=== PATIENT | female | born 1985 | race Two or more races ===

== ENCOUNTER 2020-02-12 07:23 | Emergency (ER) | payer BC ==
[~2020-02-12] VITALS: Ht 165.1 cm; Wt 63.6 kg
[2020-02-12] MEDS ORDERED: IV NORMAL SALINE 1,000ML 1,000 ML IV ONE (08:00)
--- NOTE | 2020-02-12 08:06 | PHYS DOC ---
General Adult EDM: Chief Complaint: VAGINAL BLEEDING HPI: HPI: 34-year-old G3, P2 female who is about 6 weeks presents with vaginal bleeding and cramping. She has also had some tissue. She is concerned for spontaneous miscarriage. Patient's last menstrual period started December 28. She had a positive test at home. She denies any other symptoms. No fever or chills. Review of Systems: Review of Systems: Constitutional: Denies fever or chills Eyes: Denies change in visual acuity HENT: Denies nasal congestion or sore throat Respiratory: Denies cough or shortness of breath Cardiovascular: Denies chest pain or edema GI: Denies abdominal pain, nausea, vomiting, bloody stools or diarrhea : vaginal bleeding Musculoskeletal: Denies back pain or joint pain Integument: Denies rash Neurologic: Denies headache, focal weakness or sensory changes Endocrine: Denies polyuria or polydipsia Lymphatic: Denies swollen glands Psychiatric: Denies depression or anxiety Current Medications: Current Meds: Current Medications Medications (Trade) Dose Ordered Sig/Urvashi Start Time Stop Time Status Last Admin Dose Admin Sodium Chloride 1,000 ml @ 1,000 mls/hr 1X ONCE 02/12/20 08:00 02/12/20 08:59 UNV Allergies: Allergies: Allergies Coded Allergies Type Severity Reaction Last Updated Verified No Known Drug Allergies 02/12/20 No Physical Exam: PE: Constitutional: Well developed, well nourished, no acute distress, non-toxic appearance. [] HENT: Normocephalic, atraumatic, bilateral external ears normal, oropharynx moist, no oral exudates, nose normal. [] Eyes: PERRLA, EOMI, conjunctiva normal, no discharge. [] Neck: Normal range of motion, no tenderness, supple, no stridor. [] Cardiovascular:Heart rate regular rhythm, no murmur [] Lungs & Thorax: Bilateral breath sounds clear to auscultation [] Abdomen: Bowel sounds normal, soft, no tenderness, no masses, no pulsatile masses. [] Skin: Warm, dry, no erythema, no rash. [] Back: No tenderness, no CVA tenderness. [] Extremities: No tenderness, no cyanosis, no clubbing, ROM intact, no edema. [] Neurologic: Alert and oriented X 3, normal motor function, normal sensory function, no focal deficits noted. [] Psychologic: Affect normal, judgement normal, mood normal. [] EKG: EKG: [] Radiology/Procedures: Radiology/Procedures: [] Impressions: EXAMINATION: PREG 1ST TRIMESTER, 02/12/2020 7:47 AM CLINICAL INDICATION: , vaginal bleeding TECHNIQUE: Grayscale, color and spectral Doppler ultrasound images of the pelvis via transvaginal approach. COMPARISON: None. FINDINGS: The uterus measures 12.1 x 6.7 x 4.9 cm. The endometrial stripe measures 5 mm in thickness. There is no gestational sac visible at this time. No myometrial mass. The right ovary measures 2.8 x 1.8 x 1.8 cm. The left ovary measures 3.4 x 2.6 x 1.5 cm. Both ovaries are normal in appearance with normal blood flow. No adnexal mass or free fluid. IMPRESSION: Normal pelvic ultrasound. No visualized at this time. Electronically signed by: Jacqueline Rosas MD (02/12/2020 8:34 AM) [id number] DICTATED AND SIGNED BY: JACQUELINE ROSAS MD DATE: 02/12/2034 CC: DEBRA BALDERAS DO; PCP,NO ~ Heart Score: Risk Factors: Risk Factors: DM, Current or recent (<one month) smoker, HTN, HLP, family history of CAD, obesity. Risk Scores: Score 0 - 3: 2.5% MACE over next 6 weeks - Discharge Home Score 4 - 6: 20.3% MACE over next 6 weeks - Admit for Clinical Observation Score 7 - 10: 72.7% MACE over next 6 weeks - Early Invasive Strategies Course & Med Decision Making: Course & Med Decision Making Pertinent Labs and Imaging studies reviewed. (See chart for details) The patient's ultrasound is normal and does not visualize a . Her hCG is 229. I have told her that she needs to follow-up with [facility] to make sure this goes to 0. The patient is blood type O- so I have ordered RhoGam for her. Her other labs are unremarkable. She is stable for discharge at this time. [] Dragon Disclaimer: Dragon Disclaimer: This electronic medical record was generated, in whole or in part, using a voice recognition dictation system. Departure Departure: Impression: Primary Impression: Miscarriage Disposition: 01 DC HOME SELF CARE/HOMELESS Condition: STABLE Referrals: PCP,NO (PCP) Patient Instructions: Miscarriage, [id number] DEBRA BALDERAS DO Feb 12, 2020 08:06
[2020-02-12 08:18] LABS: BASO # 0.1 x10^3/uL (0.0-0.2); BASO % 1 % (0-3); EOS # 0.3 x10^3/uL (0.0-0.7); EOS % 5 % (0-3); HEMATOCRIT 36.3 % (36.0-47.0); LYMPH # 2.1 x10^3/uL (1.0-4.8); LYMPH % 33 % (24-48); MEAN CORPUSCULAR HEMOGLOBIN 30 pg (25-35); MEAN CORPUSCULAR HGB CONC 33 g/dL (31-37); MEAN CORPUSCULAR VOLUME 91 fL (79-100); MONO # 0.4 x10^3/uL (0.0-1.1); MONO % 6 % (0-9); NEUT # 3.5 x10^3uL (1.8-7.7); NEUT % 55 % (31-73); PLATELET COUNT 249 x10^3/uL (140-400); RED BLOOD COUNT 3.98 x10^6/uL (3.50-5.40); RED CELL DISTRIBUTION WIDTH 15.4 % (11.5-14.5); WHITE BLOOD COUNT 6.3 x10^3/uL (4.0-11.0)
[2020-02-12 08:27] LABS: CALCIUM 9.2 mg/dL (8.5-10.1); CREATININE 0.7 mg/dL (0.6-1.0)
[2020-02-12 08:33] LABS: ALBUMIN 4.1 g/dL (3.4-5.0); ALBUMIN/GLOBULIN RATIO 1.2 (1.0-1.7); TOTAL BILIRUBIN 1.5 mg/dL (0.2-1.0); TOTAL PROTEIN 7.4 g/dL (6.4-8.2)
--- NOTE | 2020-02-12 08:37 | RAD ---
EXAMINATION: PREG 1ST TRIMESTER, 02/12/2020 7:47 AM CLINICAL INDICATION: , vaginal bleeding TECHNIQUE: Grayscale, color and spectral Doppler ultrasound images of the pelvis via transvaginal approach. COMPARISON: None. FINDINGS: The uterus measures 12.1 x 6.7 x 4.9 cm. The endometrial stripe measures 5 mm in thickness. There is no gestational sac visible at this time. No myometrial mass. The right ovary measures 2.8 x 1.8 x 1.8 cm. The left ovary measures 3.4 x 2.6 x 1.5 cm. Both ovaries are normal in appearance with normal blood flow. No adnexal mass or free fluid. IMPRESSION: Normal pelvic ultrasound. No visualized at this time. Electronically signed by: Jacqueline Rosas MD (02/12/2020 8:34 AM) [id number]
[2020-02-12 10:37] VITALS: BP 138/98
[2020-02-12 10:54] VITALS: BP 143/59
[2020-02-12 11:01] LABS: CLARITY,URINE TURBID; COLOR,URINE RED
[2020-02-12 11:02] LABS: BACTERIA,URINE MANY /HPF (0-FEW); RBC,URINE TNTC /HPF (0-2); SQUAMOUS EPITHELIAL CELL,UR FEW /LPF; WBC,URINE OCC /HPF (0-4)
== END 2020-02-12 11:00 | disposition home or self-care (01) ==
LOC: ER 07:23
DX: O03.9 Complete or unspecified spontaneous abortion without complication (principal)
CPT/HCPCS: 36415; 36430; 76801; 80053; 81001; 84702; 85025; 86850; 86900; 86901; 87086; 96360; 99285; J2791; J7030